=== PATIENT | male | born 1950 | race Caucasian/White ===

== ENCOUNTER 2022-08-01 22:33 | Inpatient (IN) ==
[2022-08-01] MEDS ORDERED: ONDANSETRON 4 MG/2 ML VIAL ONE (22:51)
[2022-08-01] MEDS ORDERED: ONDANSETRON 4 MG/2 ML VIAL IV STA (22:52)
[2022-08-01] MEDS ORDERED: MORPHINE 2 MG/1 ML SYRINGE ONE (22:59)
[2022-08-01] MEDS ORDERED: NITROGLYCERIN 2% OINT 1 INCH/GM PACK TOP ONE (22:59)
[2022-08-01] MEDS ORDERED: HEPARIN 1,000 UNIT/1 ML VIAL IV STA (23:01)
[2022-08-01] MEDS ORDERED: TICAGRELOR 90 MG TABLET PO STA (23:01)
[2022-08-01] MEDS ORDERED: HEPARIN 5,000 UNIT/1 ML VIAL ONE ×2 (23:02→23:53)
[2022-08-01] MEDS ORDERED: TICAGRELOR 90 MG TABLET ONE (23:02)
[2022-08-01] MEDS ORDERED: NITROGLYCERIN 2% OINT 1 INCH/GM PACK TOP STA (23:05)
[2022-08-01] MEDS ORDERED: MORPHINE 2 MG/1 ML SYRINGE IV STA ×2 (23:05→23:22)
[2022-08-01] MEDS ORDERED: HEPARIN 5,000 UNIT/1 ML VIAL IV STA (23:05)
[2022-08-01] MEDS ORDERED: SODIUM CHLORIDE 0.9% 1,000 ML IV STA (23:05)
[2022-08-01 23:06] LABS: Basophils % 0.4 % (0.0-0.8); Eosinophils # 0.1 10*3/uL (0.0-0.87); Eosinophils % 1.5 % (0.00-10.9); Hematocrit 47.5 VOL% (42.0-52.0); Hemoglobin 16.3 GM/DL (14.0-18.0); Immature Granulocytes % 0.2 %; Immature Granulocytes Absolute 0.02 #; Lymphocytes # 4.7 10*3/uL (1.4-4.0); Lymphocytes % 52.4 % (21.2-54.2); Mean Corpuscular HGB Conc 34.3 GM/DL (32-36); Mean Corpuscular Volume 89.1 FL (87-102); Mean Platelet Volume 9.9 FL (9.6-12.0); Monocytes # 1.1 10*3/uL (0.11-0.8); Monocytes % 12.4 % (1.7-12.7); Neutrophils % 33.1 % (38.7-73.9); Platelet Count 266 T/CUMM (130-400); Red Blood Count 5.33 MC/CUMM (3.8-5.5); Red Cell Distribution Width 14.1 % (9.3-17.3); White Blood Count 9.1 T/CUMM (4-12)
[2022-08-01 23:17] LABS: PT Patient Result 10.9 SECS (10.1-12.1); Partial Thromboplastin Time 27.1 SECS (23.7-32.9)
[2022-08-01 23:19] VITALS: BP 127/72
[2022-08-01] MEDS ORDERED: HEPARIN/NACL 0.9% 2 UNITS/ML 2,000 UNIT/1,000 ML BAG IV ONE (23:34)
[2022-08-01] MEDS ORDERED: MIDAZOLAM 2 MG/2 ML VIAL ONE (23:34)
[2022-08-01] MEDS ORDERED: fentaNYL 100 MCG/2 ML VIAL ONE (23:34)
[2022-08-01 23:39] LABS: Eosinophils 1 % (0-10); Lymphocytes 47 % (20-55); Total Cells Counted 100
[2022-08-01 23:43] LABS: Platelet Estimate Normal
[2022-08-01] MEDS ORDERED: TIROFIBAN 5,000 MCG/100 ML PREMIX IV ONE (23:56)
[2022-08-02] MEDS ORDERED: AMIODARONE 150 MG/3 ML VIAL ONE (00:01)
[2022-08-02] MEDS ORDERED: TIROFIBAN 5,000 MCG/100 ML PREMIX IV SCH (00:05)
[2022-08-02 00:10] LABS: Albumin 3.3 G/DL (3.4-5.0); Bilirubin,Total 0.5 MG/DL (0.20-1.00); Calcium 8.8 MG/DL (8.5-10.1); Osmolality,Calculated 287.3 MOS/KG (273-304); Potassium 3.3 MMOL/L (3.5-5.1)
[2022-08-02] MEDS ORDERED: HEPARIN 5,000 UNIT/1 ML VIAL ONE (00:12)
[2022-08-02] MEDS ORDERED: NITROGLYCERIN SL 0.4 MG TABLET SL PRN ×2 (00:40→12:36)
[2022-08-02] MEDS ORDERED: HYDROmorphone 1 MG/1 ML SYRINGE IV PRN (00:40)
[2022-08-02] MEDS ORDERED: SODIUM CHLORIDE 0.9% 1,000 ML IV SCH (01:00)
[2022-08-02 04:40] LABS: Basophils % 0.2 % (0.0-0.8); Hematocrit 43.8 VOL% (42.0-52.0); Hemoglobin 14.8 GM/DL (14.0-18.0); Immature Granulocytes % 0.4 %; Immature Granulocytes Absolute 0.05 #; Lymphocytes # 1.4 10*3/uL (1.4-4.0); Mean Corpuscular HGB Conc 33.8 GM/DL (32-36); Mean Corpuscular Volume 90.3 FL (87-102); Mean Platelet Volume 10.6 FL (9.6-12.0); Monocytes # 1.4 10*3/uL (0.11-0.8); Neutrophils % 79.4 % (38.7-73.9); Platelet Count 245 T/CUMM (130-400); Red Blood Count 4.85 MC/CUMM (3.8-5.5); White Blood Count 13.7 T/CUMM (4-12)
[2022-08-02 05:06] LABS: Calcium 8.1 MG/DL (8.5-10.1); Osmolality,Calculated 284.3 MOS/KG (273-304); Potassium 4.2 MMOL/L (3.5-5.1)
[2022-08-02] MEDS ORDERED: METOPROLOL TARTRATE 50 MG TABLET PO SCH (09:00)
[2022-08-02] MEDS ORDERED: TICAGRELOR 90 MG TABLET PO SCH ×2 (09:00→21:00)
[2022-08-02] MEDS ORDERED: LOSARTAN 25 MG TABLET PO SCH (09:00)
[2022-08-02] MEDS ORDERED: ASPIRIN EC 81 MG TABLET PO SCH (09:00)
[2022-08-02] MEDS ORDERED: PANTOPRAZOLE 40 MG TABLET PO SCH (09:00)
[2022-08-02 10:02] LABS: Risk Ratio 5.23; VLDL Cholesterol 17.6 MG/DL
[2022-08-02] MEDS: METOPROLOL TARTRATE 50 MG TABLET PO SCH (20:16)
[2022-08-02] MEDS ORDERED: ATORVASTATIN 40 MG TABLET PO SCH (21:00)
[2022-08-02] MEDS ORDERED: ATORVASTATIN 80 MG TABLET PO SCH (21:00)
[2022-08-03 05:39] LABS: Basophils % 0.3 % (0.0-0.8); Eosinophils # 0.1 10*3/uL (0.0-0.87); Eosinophils % 0.7 % (0.00-10.9); Hematocrit 43.5 VOL% (42.0-52.0); Hemoglobin 14.7 GM/DL (14.0-18.0); Immature Granulocytes % 0.5 %; Immature Granulocytes Absolute 0.05 #; Lymphocytes # 2.1 10*3/uL (1.4-4.0); Lymphocytes % 20.3 % (21.2-54.2); Mean Corpuscular HGB Conc 33.8 GM/DL (32-36); Mean Corpuscular Volume 90.1 FL (87-102); Mean Platelet Volume 10.2 FL (9.6-12.0); Monocytes # 1.6 10*3/uL (0.11-0.8); Monocytes % 15.3 % (1.7-12.7); Neutrophils % 62.9 % (38.7-73.9); Platelet Count 208 T/CUMM (130-400); Red Blood Count 4.83 MC/CUMM (3.8-5.5); Red Cell Distribution Width 14.3 % (9.3-17.3); White Blood Count 10.5 T/CUMM (4-12)
[2022-08-03 06:02] LABS: Calcium 8.3 MG/DL (8.5-10.1); Osmolality,Calculated 279.4 MOS/KG (273-304)
[2022-08-03] MEDS: METOPROLOL TARTRATE 50 MG TABLET PO SCH (08:45)
[2022-08-03] MEDS ORDERED: ASPIRIN EC 81 MG TABLET PO SCH (09:00)
[2022-08-03] MEDS ORDERED: CLOPIDOGREL 75 MG TABLET PO SCH (09:00)
[2022-08-03] MEDS ORDERED: LOSARTAN 25 MG TABLET PO SCH (09:00)
[2022-08-03] MEDS ORDERED: PANTOPRAZOLE 40 MG TABLET PO SCH (09:00)
[2022-08-03] MEDS ORDERED: APIXABAN 5 MG TABLET PO SCH (21:35)
[2022-08-04] MEDS ORDERED: METOPROLOL SUCCINATE XL 50 MG TABLET PO SCH (09:00)
== END 2022-08-03 11:58 | disposition home or self-care (01) | DRG 247 ==
LOC: EDUNIT# → EDBD → N.ED 22:33 → N.ICU 23:05 → N.ED 23:32 → N.CL 08-02 00:32 → N.ICU 08-02 00:44
PROVIDERS: ADMIT Internal Medicine Interventional Cardiology; ATTEND Internal Medicine Interventional Cardiology
PROC: CLCCHCL (ICD-10-PCS; 2022-08-02 00:15)

== ENCOUNTER 2022-08-06 23:52 | Inpatient (IN) ==
[2022-08-07] MEDS ORDERED: NITROGLYCERIN SL 0.4 MG TABLET SL PRN ×2 (00:13→01:43)
[2022-08-07] MEDS ORDERED: ONDANSETRON 4 MG/2 ML VIAL IV STA (00:13)
[2022-08-07] MEDS ORDERED: MORPHINE 2 MG/1 ML SYRINGE IV STA (00:13)
[2022-08-07] MEDS ORDERED: TIROFIBAN IV ONE (00:17)
[2022-08-07 00:25] LABS: Basophils # 0.1 10*3/uL (0.0-0.2); Basophils % 0.5 % (0.0-0.8); Eosinophils # 0.4 10*3/uL (0.0-0.87); Eosinophils % 3.1 % (0.00-10.9); Hematocrit 48.4 VOL% (42.0-52.0); Hemoglobin 16.4 GM/DL (14.0-18.0); Immature Granulocytes % 0.4 %; Immature Granulocytes Absolute 0.05 #; Lymphocytes # 6.7 10*3/uL (1.4-4.0); Lymphocytes % 47.1 % (21.2-54.2); Mean Corpuscular HGB Conc 33.9 GM/DL (32-36); Mean Platelet Volume 10.7 FL (9.6-12.0); Monocytes # 2.1 10*3/uL (0.11-0.8); Monocytes % 14.4 % (1.7-12.7); Neutrophils % 34.5 % (38.7-73.9); Platelet Count 294 T/CUMM (130-400); Red Blood Count 5.38 MC/CUMM (3.8-5.5); Red Cell Distribution Width 14.1 % (9.3-17.3); White Blood Count 14.3 T/CUMM (4-12)
[2022-08-07] MEDS ORDERED: NITROGLYCERIN DRIP 50 MG/250 ML BOTTLE IV ONE (00:39)
[2022-08-07] MEDS ORDERED: MIDAZOLAM 2 MG/2 ML VIAL ONE (00:39)
[2022-08-07] MEDS ORDERED: HYDROmorphone 1 MG/1 ML SYRINGE ONE (00:39)
[2022-08-07] MEDS ORDERED: VERAPAMIL 5 MG/2 ML VIAL ONE (00:40)
[2022-08-07 00:49] LABS: PT Patient Result 11.4 SECS (10.1-12.1)
[2022-08-07 00:52] LABS: Eosinophils 2 % (0-10); Lymphocytes 59 % (20-55); Total Cells Counted 100
[2022-08-07 00:53] LABS: Platelet Estimate Normal
[2022-08-07 00:54] LABS: Albumin 3.2 G/DL (3.4-5.0); Bilirubin,Total 1.1 MG/DL (0.20-1.00); Calcium 9.1 MG/DL (8.5-10.1); Potassium 4.1 MMOL/L (3.5-5.1); Total Protein 7.9 G/DL (6.4-8.2)
[2022-08-07 00:59] VITALS: BP 116/68
[2022-08-07] MEDS ORDERED: TIROFIBAN 5,000 MCG/100 ML PREMIX IV SCH (01:07)
[2022-08-07] MEDS ORDERED: ASPIRIN 325 MG TABLET ONE (01:21)
[2022-08-07] MEDS ORDERED: PRASUGREL 10 MG TABLET ONE (01:41)
[2022-08-07] MEDS ORDERED: PRASUGREL 10 MG TABLET PO STA (01:42)
[2022-08-07 03:07] LABS: Blood Urea Nitrogen 18 MG/DL (7-18); Calcium 8.2 MG/DL (8.5-10.1); Carbon Dioxide 20 MMOL/L (21-32); Chloride 109 MMOL/L (98-107); Glucose 116 MG/DL (74-106); Potassium 3.9 MMOL/L (3.5-5.1); Sodium 136 MMOL/L (136-145)
[2022-08-07 08:45] LABS: Basophils % 0.3 % (0.0-0.8); Eosinophils # 0.1 10*3/uL (0.0-0.87); Eosinophils % 1.3 % (0.00-10.9); Hematocrit 45.2 VOL% (42.0-52.0); Hemoglobin 15.5 GM/DL (14.0-18.0); Immature Granulocytes % 0.2 %; Immature Granulocytes Absolute 0.02 #; Lymphocytes # 2.6 10*3/uL (1.4-4.0); Lymphocytes % 29.7 % (21.2-54.2); Mean Corpuscular HGB Conc 34.3 GM/DL (32-36); Mean Corpuscular Volume 89.3 FL (87-102); Mean Platelet Volume 9.9 FL (9.6-12.0); Monocytes % 11.4 % (1.7-12.7); Neutrophils % 57.1 % (38.7-73.9); Platelet Count 248 T/CUMM (130-400); Red Blood Count 5.06 MC/CUMM (3.8-5.5); Red Cell Distribution Width 13.8 % (9.3-17.3); White Blood Count 8.7 T/CUMM (4-12)
[2022-08-07] MEDS ORDERED: ASPIRIN EC 81 MG TABLET PO SCH (09:00)
[2022-08-07] MEDS: ASPIRIN EC 81 MG TABLET PO SCH (09:52)
[2022-08-07] MEDS: METOPROLOL SUCCINATE XL 50 MG TABLET PO SCH (09:52)
[2022-08-07 10:35] LABS: Platelet Estimate Normal
[2022-08-07] MEDS: ATORVASTATIN 80 MG TABLET PO SCH (20:42)
[2022-08-08] MEDS: PRASUGREL 10 MG TABLET PO SCH (08:35)
[2022-08-08] MEDS: ASPIRIN EC 81 MG TABLET PO SCH (08:35)
[2022-08-08] MEDS: METOPROLOL SUCCINATE XL 50 MG TABLET PO SCH (08:35)
[2022-08-08 10:00] LABS: Basophils % 0.5 % (0.0-0.8); Eosinophils # 0.3 10*3/uL (0.0-0.87); Eosinophils % 3.1 % (0.00-10.9); Hematocrit 44.8 VOL% (42.0-52.0); Hemoglobin 15.3 GM/DL (14.0-18.0); Immature Granulocytes % 0.2 %; Immature Granulocytes Absolute 0.02 #; Lymphocytes # 2.2 10*3/uL (1.4-4.0); Lymphocytes % 27.7 % (21.2-54.2); Mean Corpuscular HGB Conc 34.2 GM/DL (32-36); Mean Corpuscular Volume 89.4 FL (87-102); Monocytes # 1.1 10*3/uL (0.11-0.8); Monocytes % 13.3 % (1.7-12.7); Neutrophils % 55.2 % (38.7-73.9); Platelet Count 250 T/CUMM (130-400); Red Blood Count 5.01 MC/CUMM (3.8-5.5); Red Cell Distribution Width 13.9 % (9.3-17.3); White Blood Count 8.1 T/CUMM (4-12)
[2022-08-08 10:23] LABS: Calcium 8.4 MG/DL (8.5-10.1); Osmolality,Calculated 276.7 MOS/KG (273-304)
[2022-08-08] MEDS: LOSARTAN 25 MG TABLET PO SCH (10:36)
[2022-08-08] MEDS: APIXABAN 5 MG TABLET PO SCH ×2 (10:36→20:15)
[2022-08-08] MEDS: ATORVASTATIN 80 MG TABLET PO SCH (20:15)
[2022-08-09 05:56] LABS: Basophils # 0.1 10*3/uL (0.0-0.2); Basophils % 0.7 % (0.0-0.8); Eosinophils # 0.4 10*3/uL (0.0-0.87); Hematocrit 42.8 VOL% (42.0-52.0); Hemoglobin 14.4 GM/DL (14.0-18.0); Immature Granulocytes % 0.4 %; Immature Granulocytes Absolute 0.03 #; Lymphocytes # 2.6 10*3/uL (1.4-4.0); Lymphocytes % 35.3 % (21.2-54.2); Mean Corpuscular HGB Conc 33.6 GM/DL (32-36); Mean Corpuscular Volume 90.9 FL (87-102); Mean Platelet Volume 10.3 FL (9.6-12.0); Monocytes # 1.1 10*3/uL (0.11-0.8); Neutrophils % 43.6 % (38.7-73.9); Platelet Count 242 T/CUMM (130-400); Red Blood Count 4.71 MC/CUMM (3.8-5.5); Red Cell Distribution Width 13.7 % (9.3-17.3); White Blood Count 7.4 T/CUMM (4-12)
[2022-08-09 06:14] LABS: Calcium 8.4 MG/DL (8.5-10.1); Osmolality,Calculated 279.4 MOS/KG (273-304); Potassium 3.9 MMOL/L (3.5-5.1)
[2022-08-09] MEDS: LOSARTAN 25 MG TABLET PO SCH (09:16)
[2022-08-09] MEDS: ASPIRIN EC 81 MG TABLET PO SCH (09:16)
[2022-08-09] MEDS: APIXABAN 5 MG TABLET PO SCH (09:16)
[2022-08-09] MEDS: PRASUGREL 10 MG TABLET PO SCH (09:16)
[2022-08-09] MEDS: METOPROLOL SUCCINATE XL 50 MG TABLET PO SCH (09:17)
== END 2022-08-09 09:00 | disposition home or self-care (01) | DRG 250 ==
LOC: N.ED 23:52 → N.CC 08-07 00:49 → N.ED 08-07 01:02
PROVIDERS: ADMIT Internal Medicine Cardiovascular Disease; ATTEND Internal Medicine Cardiovascular Disease